=== PATIENT | male | born 1945 | race Two or more races ===

== ENCOUNTER 2022-10-14 10:15 | Inpatient (IN) | payer OTHER ==
[~2022-10-14] VITALS: Ht 170.2 cm; Wt 79.4 kg
[2022-10-14 11:37] LABS: Basophils # (auto) 0 10 ^3/uL (0-0.2); Basophils % (auto) 0.3 % (0.0-2.0); Eosinophils # (auto) 0.1 10 ^3/uL (0-0.8); Eosinophils % (auto) 1.3 % (0.0-7.0); Hematocrit 38.6 % (41.0-53.0); Hemoglobin 13.4 g/dL (13.5-17.5); Lymphocytes # (auto) 1.6 10 ^3/uL (0.4-5.4); Lymphocytes % (auto) 27.7 % (10.0-50.0); Mean Corpuscular Hemoglobin 32.2 pg (28.0-32.0); Mean Corpuscular Hgb Conc. 34.7 g/dL (32.0-36.0); Mean Corpuscular Volume 92.7 fL (80.0-100.0); Monocytes # (auto) 0.3 10 ^3/uL (0-1.3); Monocytes % (auto) 4.6 % (0.0-12.0); Neutrophils # (auto) 3.9 10 ^3/uL (1.6-8.6); Neutrophils % (auto) 66.1 % (37.0-80.0); Red Blood Cells 4.16 10^6/uL (4.5-5.90); Red Cell Distribution Width 14.3 % (11.8-14.3); White Blood Cell 5.9 10^3/uL (4.4-10.8)
[2022-10-14 11:59] LABS: Lactic Acid w/Reflex 2.3 mmol/L (0.4-2.0)
[2022-10-14] MEDS ORDERED: SODIUM CHLORIDE 0.9% 1,000 ML IV ONE (12:15)
[2022-10-14 12:33] LABS: BUN/Creatinine Ratio 14.7 (10.0-20.0); Potassium 4.1 mmol/L (3.5-5.1)
[2022-10-14 12:34] LABS: Albumin 4.4 g/dL (3.4-5.0); Bilirubin, Total 0.6 mg/dL (0.2-1.0); Calcium 8.8 mg/dL (8.5-10.1); Total Protein 7.5 g/dL (6.4-8.2)
[2022-10-14 12:35] LABS: CRP High Sensitivity 0.53 mg/dL (< 0.3); Magnesium 2.1 mg/dL (1.6-2.6)
[2022-10-14 16:16] LABS: Urine Bacteria NONE SEEN /hpf (None Seen); Urine Blood Negative /uL (Negative); Urine Mucus FEW (None Seen); Urine Specific Gravity 1.049 (1.001-1.035); Urine WBC 1 /hpf (0 - 3)
[2022-10-14] MEDS ORDERED: D5W 5% IV ONE ×2 (18:30→19:30)
[2022-10-14] MEDS ORDERED: ACETYLCYSTEINE IV ONE ×2 (18:30→19:30)
[2022-10-14 19:06] LABS: Salicylate < 1.7 mg/dL (2.8-20.0)
[2022-10-14 19:08] LABS: Albumin 3.5 g/dL (3.4-5.0); Calcium 7.9 mg/dL (8.5-10.1); Potassium 3.7 mmol/L (3.5-5.1)
[2022-10-14 19:12] LABS: BUN/Creatinine Ratio 16.3 (10.0-20.0); Bilirubin, Total 0.6 mg/dL (0.2-1.0); INR 1.13 (0.9-1.15); Total Protein 6.7 g/dL (6.4-8.2)
[2022-10-14 19:35] LABS: Acetaminophen 185.2 ug/mL (10-30)
[2022-10-14] MEDS ORDERED: METOCLOPRAMIDE HCL 5MG/ml INJ 2ml VIAL IV PRN (20:45)
[2022-10-14] MEDS ORDERED: DOCUSATE SOD 100 MG CAP PO PRN (20:45)
[2022-10-14] MEDS: SODIUM CHLOR 0.9% PF (SALINE LOCK) 10ML VIAL/SYR IV SCH (22:02)
[2022-10-14 22:15] LABS: Salicylate < 1.7 mg/dL (2.8-20.0)
[2022-10-14 22:54] LABS: Acetaminophen 411.7 ug/mL (10-30)
[2022-10-14 23:37] LABS: Albumin 2.9 g/dL (3.4-5.0); BUN/Creatinine Ratio 16.9 (10.0-20.0); Calcium 7.8 mg/dL (8.5-10.1); Potassium 3.5 mmol/L (3.5-5.1)
[2022-10-14 23:40] LABS: Bilirubin, Total 0.6 mg/dL (0.2-1.0); Total Protein 6.3 g/dL (6.4-8.2)
[2022-10-15] MEDS: ACETYLCYSTEINE IV SCH ×3 (04:10→21:12)
[2022-10-15] MEDS: D5W 5% IV SCH ×3 (04:10→21:12)
[2022-10-15 05:44] LABS: INR 1.36 (0.9-1.15)
[2022-10-15 05:58] LABS: Albumin 3.2 g/dL (3.4-5.0); Calcium 7.8 mg/dL (8.5-10.1); Potassium 3.4 mmol/L (3.5-5.1)
[2022-10-15] MEDS: SODIUM CHLOR 0.9% PF (SALINE LOCK) 10ML VIAL/SYR IV SCH ×3 (06:01→21:20)
[2022-10-15 06:10] LABS: BUN/Creatinine Ratio 16.4 (10.0-20.0); Bilirubin, Total 0.6 mg/dL (0.2-1.0); Total Protein 6.7 g/dL (6.4-8.2)
[2022-10-15] MEDS: ENOXAPARIN SOD 40 MG/0.4 ML SYRINGE SC SCH (12:00)
[2022-10-15 12:28] LABS: INR 1.41 (0.9-1.15)
[2022-10-15 12:32] LABS: Albumin 3.1 g/dL (3.4-5.0); BUN/Creatinine Ratio 15.2 (10.0-20.0); Potassium 3.9 mmol/L (3.5-5.1)
[2022-10-15 12:51] LABS: Bilirubin, Total 0.7 mg/dL (0.2-1.0); Total Protein 6.9 g/dL (6.4-8.2)
[2022-10-15 18:40] LABS: Albumin 3.6 g/dL (3.4-5.0); Calcium 8.2 mg/dL (8.5-10.1); Potassium 3.5 mmol/L (3.5-5.1)
[2022-10-15 18:49] LABS: BUN/Creatinine Ratio 13.3 (10.0-20.0); Bilirubin, Total 0.8 mg/dL (0.2-1.0)
[2022-10-15 18:50] LABS: INR 1.5 (0.9-1.15)
[2022-10-15 22:00] VITALS: BP 154/94
[2022-10-16 01:04] LABS: INR 1.49 (0.9-1.15)
[2022-10-16 01:05] LABS: Calcium 8.1 mg/dL (8.5-10.1); Potassium 3.3 mmol/L (3.5-5.1)
[2022-10-16 01:15] LABS: Bilirubin, Total 0.8 mg/dL (0.2-1.0); Total Protein 6.5 g/dL (6.4-8.2)
[2022-10-16 01:43] LABS: BUN/Creatinine Ratio 13.4 (10.0-20.0)
[2022-10-16 05:00] VITALS: BP 153/95
[2022-10-16] MEDS: SODIUM CHLOR 0.9% PF (SALINE LOCK) 10ML VIAL/SYR IV SCH ×3 (06:00→22:00)
[2022-10-16 06:39] LABS: INR 1.46 (0.9-1.15)
[2022-10-16 06:45] LABS: Albumin 3.3 g/dL (3.4-5.0); Calcium 8.4 mg/dL (8.5-10.1); Potassium 3.6 mmol/L (3.5-5.1)
[2022-10-16 06:56] LABS: BUN/Creatinine Ratio 11.4 (10.0-20.0); Bilirubin, Total 0.9 mg/dL (0.2-1.0); Total Protein 6.6 g/dL (6.4-8.2)
[2022-10-16 08:00] VITALS: BP 146/97
[2022-10-16 09:07] VITALS: BP 146/97
[2022-10-16] MEDS: ENOXAPARIN SOD 40 MG/0.4 ML SYRINGE SC SCH (09:25)
[2022-10-16 12:27] LABS: Albumin 3.2 g/dL (3.4-5.0); Calcium 8.5 mg/dL (8.5-10.1); Potassium 3.5 mmol/L (3.5-5.1)
[2022-10-16 12:30] VITALS: BP 138/84
[2022-10-16 12:44] LABS: BUN/Creatinine Ratio 11.9 (10.0-20.0); Bilirubin, Total 0.9 mg/dL (0.2-1.0); Total Protein 6.5 g/dL (6.4-8.2)
[2022-10-16] MEDS ORDERED: HYDROcodone-ACET 5/325MG TAB PO PRN (12:45)
[2022-10-16] MEDS ORDERED: MORPHINE SULFATE INJ 2 MG/ml SYRG IV PRN (12:45)
[2022-10-16 12:52] LABS: INR 1.52 (0.9-1.15)
[2022-10-16] MEDS: ACETYLCYSTEINE IV SCH (15:09)
[2022-10-16] MEDS: D5W 5% IV SCH (15:09)
[2022-10-16 15:52] VITALS: BP 133/86
[2022-10-16 18:39] LABS: Albumin 3.3 g/dL (3.4-5.0); Calcium 8.4 mg/dL (8.5-10.1); Potassium 3.6 mmol/L (3.5-5.1)
[2022-10-16 18:41] LABS: INR 1.38 (0.9-1.15)
[2022-10-16 18:57] LABS: BUN/Creatinine Ratio 11.6 (10.0-20.0); Bilirubin, Total 0.9 mg/dL (0.2-1.0); Total Protein 6.6 g/dL (6.4-8.2)
[2022-10-16] MEDS ORDERED: oxyCODONE HCL 5MG TAB PO PRN (21:00)
[2022-10-17 00:56] LABS: INR 1.36 (0.9-1.15)
[2022-10-17 01:02] LABS: Calcium 8.2 mg/dL (8.5-10.1); Potassium 3.4 mmol/L (3.5-5.1)
[2022-10-17 01:06] LABS: BUN/Creatinine Ratio 11.3 (10.0-20.0)
[2022-10-17 01:14] LABS: Total Protein 6.3 g/dL (6.4-8.2)
[2022-10-17 06:14] LABS: INR 1.35 (0.9-1.15)
[2022-10-17] MEDS: SODIUM CHLOR 0.9% PF (SALINE LOCK) 10ML VIAL/SYR IV SCH ×3 (06:17→21:08)
[2022-10-17 06:20] LABS: Albumin 3.1 g/dL (3.4-5.0); Calcium 8.6 mg/dL (8.5-10.1); Potassium 3.5 mmol/L (3.5-5.1)
[2022-10-17 06:29] LABS: Bilirubin, Total 1.1 mg/dL (0.2-1.0); Total Protein 6.3 g/dL (6.4-8.2)
[2022-10-17] MEDS: ENOXAPARIN SOD 40 MG/0.4 ML SYRINGE SC SCH (09:41)
[2022-10-17] MEDS ORDERED: SERTRALINE HCL 50 MG TAB PO SCH (10:00)
[2022-10-17] MEDS: ACETYLCYSTEINE IV SCH (11:29)
[2022-10-17] MEDS: D5W 5% IV SCH (11:29)
[2022-10-17 12:22] LABS: Albumin 3.2 g/dL (3.4-5.0); BUN/Creatinine Ratio 13.3 (10.0-20.0); Calcium 8.6 mg/dL (8.5-10.1); Potassium 3.6 mmol/L (3.5-5.1)
[2022-10-17 12:24] LABS: INR 1.35 (0.9-1.15)
[2022-10-17 12:30] LABS: Bilirubin, Total 0.9 mg/dL (0.2-1.0); Total Protein 6.5 g/dL (6.4-8.2)
[2022-10-17] MEDS ORDERED: LOPERAMIDE HCL 2 MG CAP/TAB PO PRN (16:30)
[2022-10-17 18:53] LABS: Albumin 3.3 g/dL (3.4-5.0); Calcium 8.8 mg/dL (8.5-10.1); Potassium 3.8 mmol/L (3.5-5.1)
[2022-10-17 18:56] LABS: INR 1.3 (0.9-1.15)
[2022-10-17 19:03] LABS: BUN/Creatinine Ratio 13.3 (10.0-20.0); Bilirubin, Total 0.9 mg/dL (0.2-1.0); Total Protein 6.7 g/dL (6.4-8.2)
== END 2022-10-17 21:05 | disposition short-term general hospital (02) | DRG 917 ==
LOC: ER 10:15 → TELE 20:49 → TELE-EAST 10-15 20:42
PROVIDERS: ADMIT Internal Medicine; ATTEND Internal Medicine Pulmonary Disease
DX: T39.1X2A Poisoning by 4-Aminophenol derivatives, intentional self-harm, initial encounter (principal); G92.8 Other toxic encephalopathy; N17.0 Acute kidney failure with tubular necrosis; S36.119A Unspecified injury of liver, initial encounter; F33.2 Major depressive disorder, recurrent severe without psychotic features; E11.9 Type 2 diabetes mellitus without complications; I10 Essential (primary) hypertension; Z20.822 Contact with and (suspected) exposure to COVID-19; X58.XXXA Exposure to other specified factors, initial encounter; R79.89 Other specified abnormal findings of blood chemistry; Y92.89 Other specified places as the place of occurrence of the external cause; Y93.9 Activity, unspecified; Y99.8 Other external cause status
CPT/HCPCS: 36415; 51702; 70450; 71045; 72125; 73562; 80053; 80320; 80329; 81001; 82140; 82550; 82962; 83605; 83735; 84484; 85025; 85610; 86141; 87040; 87086; 87426; 93005; 96365; 96366; 99291; G0378; J7060